=== PATIENT | male | born 1970 | race Caucasian/White ===

== ENCOUNTER 2019-07-29 17:59 | Emergency (ER) | payer OTHER ==
[~2019-07-29] VITALS: Ht 182.9 cm; Wt 104.3 kg
[2019-07-29 18:44] LABS: HEMATOCRIT 41.1 % (42.0-52.0); HEMOGLOBIN 13.9 gm/dL (14.0-18.0); MCH 29.7 pg (26.0-34.0); MCHC 33.8 g/dL (28.0-37.0); MCV 87.7 fL (80.0-100.0); PLATELET COUNT 293 thou/uL (150-400); RBC 4.68 mil/uL (4.50-6.00); RDW 13.5 % (10.5-14.5); WBC 6.8 thou/uL (4.0-11.0)
[2019-07-29 18:46] LABS: ANION GAP 9 mmol/L (7-16); BUN 8 mg/dL (7-18); CHLORIDE 98 mmol/L (98-107); CO2 27 mmol/L (21-32); GLUCOSE 111 mg/dL (74-106); POTASSIUM 3.8 mmol/L (3.5-5.1); SODIUM 134 mmol/L (136-145)
[2019-07-29 18:57] LABS: ALBUMIN 3.9 g/dL (3.4-5.0); SGOT 33 U/L (15-37); SGPT 60 U/L (30-65); TOTAL BILIRUBIN 0.7 mg/dL (<0.1-1.0); TROPONIN-I <0.06 ng/mL (<0.06)
[2019-07-29 19:24] LABS: ABSOLUTE NEUTROPHILS 5.2 thou/uL (1.4-8.2)
[2019-07-29] MEDS ORDERED: IBUPROFEN 800800 M1 PO (21:02)
[2019-07-29 21:13] VITALS: BP 133/73
[2019-07-29 21:33] LABS: URINE BILIRUBIN NEGATIVE (Negative); URINE BLOOD NEGATIVE (Negative); URINE CLARITY CLEAR; URINE COLOR YELLOW; URINE GLUCOSE-RANDOM* NEGATIVE (Negative); URINE KETONES NEGATIVE (Negative); URINE LEUKOCYTES-REFLEX NEGATIVE (Negative); URINE NITRITE-REFLEX NEGATIVE (Negative); URINE PROTEIN (DIPSTICK) NEGATIVE (Negative)
[2019-07-29] MEDS ORDERED: ZOFRAN ODT4 MG DISSOLVE (22:01)
[2019-07-29] MEDS ORDERED: NORFLEX100 MG PO (22:01)
[2019-07-29] MEDS ORDERED: TESSALON PERLE100 MG PO (22:01)
[2019-07-29] MEDS ORDERED: NAPROSYN500 MG PO (22:01)
--- NOTE | 2019-07-30 19:38 | EKG ---
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 : 1970 Requested By: Shakila Simmons Order Number: [id number] MD: Fernando Richmond Measurements Intervals [place] Rate: 95 P: 64 [place]: 144 QRS: 69 QRSD: 96 T: 54 QT: 331 QTc: 416 Interpretive Statements Sinus rhythm Nonspecific ST segment abnormality No previous ECG available for comparison Electronically Signed On 07-30-2019 19:38:03 OUTREACH LIBRARIAN by Fernando Richmond [email or web address] <ELECTRONICALLY SIGNED> By: Fernando Richmond MD, [facility] 07/30/19 1938 1758 1758 Fernando Richmond MD, FACC /EPI
== END 2019-07-29 22:41 | disposition home or self-care (01) ==
LOC: ER 17:59
PROVIDERS: Emergency Medicine; Physician Assistant
DX: M79.18 Myalgia, other site (principal); R05 Cough; R11.0 Nausea; R09.81 Nasal congestion; Z87.891 Personal history of nicotine dependence